=== PATIENT | male | born 1955 | race Caucasian/White ===

== ENCOUNTER 2020-02-25 19:39 | Emergency (ER) | payer OTHER ==
[~2020-02-25] VITALS: Ht 193 cm; Wt 85.7 kg
[2020-02-25 19:48] VITALS: Ht 193 cm; Wt 85.7 kg
[2020-02-25 21:22] VITALS: BP 146/89
== END 2020-02-25 21:22 | disposition home or self-care (01) ==
LOC: ED 19:39
DX: S01.91XA Laceration without foreign body of unspecified part of head, initial encounter (principal); E11.9 Type 2 diabetes mellitus without complications; E78.00 Pure hypercholesterolemia, unspecified; Z98.890 Other specified postprocedural states; W17.89XA Other fall from one level to another, initial encounter; Y93.89 Activity, other specified; Y92.89 Other specified places as the place of occurrence of the external cause; Y99.8 Other external cause status